=== PATIENT | male | born 1975 | race Caucasian/White ===

== ENCOUNTER 2024-08-29 15:19 | Emergency (ER) | payer OTHER, SELFPAY ==
[2024-08-29 15:24] VITALS: BP 135/86
--- NOTE | 2024-08-29 17:47 | ED.GENMED ---
History of Present Illness
General
Chief Complaint: Fall
Source: patient and spouse
Time Seen by Provider: 08/29/24 16:40
History of Present Illness
History of Present Illness:
49-year-old male who presents after he fell off a ladder. Patient states he felt the ladder falling and he tried to twist away so he did land on his back and he suspects his left leg got caught in the rung. He reports pain in the left knee area.
The patient states that he is unable to bear weight. He denies numbness or tingling. Pain is just past the knee laterally on the left. Denies ankle pain. no head injury, no neck pain, no back pain, no motor weakness. Spouse states that she had
to make him crutches out of wood. He was unable to walk
Past History
Past History
ED Past Medical History: None
ED Past Surgical History: None
Social History
Tobacco: Non-smoker
Alcohol: Occasional
Personal:
Living: with family
Employment: Employed
Family History
Family History: Negative Early CAD
Phy Exam
Physical Exam
Physical Exam:
CONSTITUTIONAL Vital signs reviewed, Patient alert and oriented to person, place and time. Well-appearing
HEAD atraumatic, normocephalic.
EYES eyelids normal to inspection, Extraocular muscles intact, Conjunctiva normal, Sclera normal.
NECK normal range of motion, Trachea midline, no jugular venous distention.
RESP no respiratory distress
BACK No obvious deformities
UPPER EXTREMITY Gross Range of motion normal, gross motor strength normal
LOWER EXTREMITY , Gross motor strength normal. Limited range of motion of the left knee due to pain. Moderate tenderness at the lateral tibia and anterior tibialis proximally. Normal distal pulses and perfusion. Small abrasion to the mid [place]
NEURO Speech normal, No focal motor deficits include, [place] coma scale 15, Memory normal, Cranial Nerves intact to screening exam.
SKIN Skin warm, dry, and normal in color.
PSYCHIATRIC Patient oriented to person place and time, Normal affect.
Course
Orders/Labs/Results
Orders:
Orders
08/29/24 15:26
CR Leg Tibia/fibula Left 2 Vw Urgent
Comment:
Reason For Exam: injury
08/29/24 17:08
Foot, Left 3 View [CR Foot - Left Min 3 Views] Urgent
Comment:
Reason For Exam: fall
Knee, Left 4 or More Views [CR Knee - Left 4 Or More View*] Urgent
Comment:
Reason For Exam: fall off ladder, cant walk
08/29/24 17:45
CT Lower Ext W/o Iv Cont Lt Urgent
Comment: requested by ortho
Reason For Exam: fall off ladder, tibial plateau fx
08/29/24 17:59
Knee Immobilizer Left-Treatmen ONCE
08/29/24 19:29
Hydrocodone 5/APAP 325 [[place] 5/325] 2 tablet PO NOW STA
Vital Signs
Initial and Last Documented VS:
Initial Vital Signs
Temp Pulse Resp BP Pulse Ox
98.2 F 85 20 135/86 98
08/29/24 15:24 08/29/24 15:24 08/29/24 15:24 08/29/24 15:24 08/29/24 15:24
Last Documented Vital Signs
Temp Pulse Resp BP Pulse Ox
98.2 F 85 20 135/86 98
08/29/24 15:24 08/29/24 15:24 08/29/24 15:24 08/29/24 15:24 08/29/24 15:24
MDM/Problems Addressed
MDM/Problems Addressed:
Tibial plateau fracture
*Radiology
Radiology exam reviewed: preliminary read by ED provider (Tibial plateau fracture)
*Pulse Oximetry
Patient hypoxic: no
*Critical Care Note
Total Time (30-74mins, 75-104mins- exclusive of procedures): Not Applicable
Data Reviewed
Source: patient and spouse
Further Testing Considered But Not Given:
Consider head and C-spine imaging but no midline tenderness of the neck and no signs of trauma
Patient Management
Discussion with other providers: [facility] (Orthopedics Dr. Ibarra)
Escalation/DeEscalation of care consider admission/obs:
Considered admission however seen in the ER by orthopedics who advised him to follow-up with Dr. Gage from orthopedics at [place]. Patient is well-appearing has normal perfusion. Knee immobilizer placed. Okay for discharge to outpatient
follow-up
ED Attending Note
-
Portions of this chart may have been created with voice recognition software.� Occasional wrong word or��sound alike� substitutions may have occurred due to the inherent limitations of voice recognition software.
Discharge Plan
Departure
Patient Disposition: Home (Routine Discharge)
Date of Disposition: 08/29/24
Time of Disposition: 20:55
Patient with high blood pressure during this ER visit?: No
Discharge Problem:
Closed fracture of tibial plateau
Instructions: Lower leg fracture
Prescriptions:
New
hydrocodone-acetaminophen 5-325 mg tablet
2 tab PO Q6H PRN (Reason: Pain) Qty: 20 0RF
No Action
Lysine
1 tab PO DAILY
azithromycin 250 MG tablet
250 mg PO DAILY Qty: 6 0RF
ibuprofen 800 MG tablet
800 mg PO Q6HPRN PRN (Reason: fever, pain with food) Qty: 30 0RF
Referrals:
Luke Oshea MD [Family Provider] -
Activity Restrictions/Additional Instructions:
Tibial plateau fracture
Please follow-up with orthopedics as advised in the next 1 week. Return immediately for numbness, tingling, worsening pain, discoloration of the foot or any other concerns. Please ice often and elevate your injured knee.
Interventions
Interventions:
*General Assessment Last Done: 08/29/24 15:24
ED-Musculoskeletal Assessment Last Done: 08/29/24 20:11
ED- Neurological Assessment Last Done: 08/29/24 20:11
Discharge Date and Time
Print Language: SWEDISH
[2024-08-29] MEDS: NORCO 5/325 1 TABLET PO (20:00)
--- NOTE | 2024-08-29 20:09 | EDRN ---
Dr Diego notified pt took 1 out of 2 norco's. Returned 1 tablet to [facility] with RN witness (Lisa).
[2024-08-29 21:14] VITALS: BP 154/111
== END 2024-08-29 21:18 | disposition home or self-care (01) ==
LOC: EMR 15:19
PROVIDERS: EMERGENCY PHYSICIAN Emergency Medicine; FAMILY PHYSICIAN Family Medicine
DX: S82.142A Displaced bicondylar fracture of left tibia, initial encounter for closed fracture (principal); W11.XXXA Fall on and from ladder, initial encounter
CPT/HCPCS: 29505; 99284; 73564; 73590; 73630; 73700